=== PATIENT | male | born 1985 | race Caucasian/White ===

== ENCOUNTER 2017-11-10 00:27 | Emergency (ER) | payer BC ==
[~2017-11-10] VITALS: Ht 167.6 cm; Wt 138.0 kg
[2017-11-10] MEDS ORDERED: ondansetron 4mg rapidly disintigrating tab PO ONE (01:25)
[2017-11-10] MEDS ORDERED: acetaminophen 325mg tablet PO ONE (01:25)
[2017-11-10] MEDS ORDERED: HYDROcodone/acetaminophen 5mg/325mg tablet PO ONE (01:25)
[2017-11-10] MEDS ORDERED: cyclobenzaprine 10mg tablet PO ONE (01:25)
[2017-11-10] MEDS ORDERED: LIDOcaine 5% patch TP ONE (01:25)
[2017-11-10 02:14] VITALS: BP 130/96
[2017-11-10 02:27] LABS: CLARITY,URINE CLEAR (Clear); COLOR,URINE YELLOW (Yellow); GLUCOSE, URINE NEGATIVE (Neg); KETONES,URINE NEGATIVE (Neg); LEUKOCYTE ESTERASE ,URINE NEGATIVE (Neg); NITRITES, URINE NEGATIVE (Neg); OCCULT BLOOD,URINE NEGATIVE (Neg); PH,URINE 5.5 (4.8-8.0); PROTEIN,URINE NEGATIVE (Neg); UA COLLECTION TYPE CLN CATCH MIDSTREAM; UROBILINOGEN,URINE 0.2 E.U/dL (0.2-1.0)
[2017-11-10] MEDS ORDERED: HYDR-3965 PO (02:58)
[2017-11-10] MEDS ORDERED: CYCL-1 PO (02:58)
[2017-11-10] MEDS ORDERED: LIDO700A32 TOP (02:58)
== END 2017-11-10 03:25 | disposition home or self-care (01) ==
LOC: ER 00:27
DX: M54.5 Low back pain (principal); Z79.899 Other long term (current) drug therapy
CPT/HCPCS: 81003; 99284

== ENCOUNTER 2022-02-28 07:13 | Emergency (ER) | payer BC, OTHER ==
[~2022-02-28] VITALS: Ht 167.6 cm; Wt 136.0 kg
[~2022-02-28 07:13] MED LIST: CYCL-1 PO; LIDO700A32 TOP
[2022-02-28] MEDS ORDERED: ketorolac trometh inj. 60 MG/2 ML VIAL IM ONE (07:50)
[2022-02-28] MEDS ORDERED: DIAZ5TAB22 PO (07:52)
[2022-02-28] MEDS ORDERED: LIDO700A32 TOP (07:52)
[2022-02-28] MEDS ORDERED: CYCL-1 PO (07:52)
[2022-02-28] MEDS ORDERED: DEC4T PO (08:05)
[2022-02-28] MEDS ORDERED: HYDR-3965 PO (08:19)
[2022-02-28] MEDS ORDERED: HYDROcodone/acetaminophen 10/325mg tab PO ONE (08:35)
[2022-02-28] MEDS ORDERED: HYDROcodone/acetaminophen 5mg/325mg tablet PO ONE (09:40)
[2022-02-28] MEDS ORDERED: dexamethasone 4mg tablet PO ONE (09:40)
--- NOTE | 2022-02-28 09:47 | NUR ---
Pt stated that he was not able to walk at this time and Dr. Casey wanted the pt to have more meds before he leaves.
--- NOTE | 2022-02-28 10:33 | NUR ---
Pt walked with help to the sink and back. He did have to hold on the bed walking to the sink in the room
[2022-02-28 10:52] VITALS: BP 124/77
== END 2022-02-28 09:08 | disposition home or self-care (01) ==
LOC: ER 07:13
DX: S39.012A Strain of muscle, fascia and tendon of lower back, initial encounter (principal); M79.18 Myalgia, other site; Z79.899 Other long term (current) drug therapy; X58.XXXA Exposure to other specified factors, initial encounter; Y93.89 Activity, other specified; Y92.89 Other specified places as the place of occurrence of the external cause; Y99.8 Other external cause status
CPT/HCPCS: 96372; 99284; J1885